=== PATIENT | male | born 1960 | race Two or more races ===

== ENCOUNTER 2023-10-11 18:01 | Inpatient (IN) | payer OTHER ==
[~2023-10-11] VITALS: Ht 167.6 cm; Wt 73.9 kg
[2023-10-11] MEDS ORDERED: CRESTOR20 MG PO (18:17)
[2023-10-11] MEDS ORDERED: LIPITOR20 MG PO (18:17)
[2023-10-11] MEDS ORDERED: PROMETHAZINE HCL 50 MG/ML AMPUL IM ONE (18:30)
[2023-10-11] MEDS ORDERED: TAMSULOSIN HCL 0.4 MG CAP PO ONE (18:30)
[2023-10-11] MEDS ORDERED: 0.9 % SODIUM CHLORIDE 1,000 ML IV ONE (18:30)
[2023-10-11] MEDS ORDERED: HYOSCYAMINE SULFATE 0.125 MG TAB.SUBL SL ONE (18:30)
[2023-10-11] MEDS ORDERED: MEPERIDINE HCL/PF 50 MG/ML VIAL IM ONE (18:30)
[2023-10-11 19:05] LABS: HEMATOCRIT 46.7 % (39.0-48.0); HEMOGLOBIN 15.7 g/dL (13-16.00); MEAN CELL VOLUME 98.2 fL (80.0-100.00); MEAN CORPUSCULAR HEMOGLOBIN 32.9 pg (27.00-32.0); MEAN CORPUSCULAR HGB CONC 33.5 g/dl (32.0-36.0); PLATELET COUNT 253 K/uL (150-450); RED BLOOD COUNT 4.76 M/uL (4.00-6.00); RED CELL DISTRIBUTION WIDTH 13.3 % (11.5-14.5)
[2023-10-11 19:24] LABS: INR 1.01; PARTIAL THROMBOPLASTIN TIME 24.6 SECONDS (22.0-34.0); PROTHROMBIN TIME 10.6 SECONDS (9.0-11.5)
[2023-10-11 19:29] LABS: ALBUMIN 4.2 gm/dL (3.4-5.0); BILIRUBIN TOTAL 0.69 mg/dL (0.3-1.2); CALCIUM 9.7 mg/dL (8.5-10.1); CREATININE SERUM 1.89 mg/dL (0.70-1.30); GFR 36.32; GLOBULINA 3.9 G/DL (2.4-3.5); POTASSIUM 4.55 mEq/L (3.5-5.1); TOTAL PROTEIN 8.1 gm/dL (6.4-8.2)
[2023-10-11] MEDS ORDERED: ONDANSETRON HCL 4 MG in 0.9 % SODIUM CHLORIDE 50 ML IV PRN (21:15)
[2023-10-11] MEDS ORDERED: 0.9 % SODIUM CHLORIDE 1,000 ML IV SCH (21:15)
[2023-10-11] MEDS ORDERED: ACETAMINOPHEN 500 MG GEL..CAP PO PRN (21:15)
[2023-10-11] MEDS ORDERED: CEFTRIAXONE SODIUM 2,000 MG in 0.9 % SODIUM CHLORIDE 100 ML IV SCH (21:16)
[2023-10-11] MEDS ORDERED: KETOROLAC TROMETHAMINE 15 MG VIAL IV SCH (21:17)
[2023-10-11] MEDS ORDERED: ENALAPRILAT DIHYDRATE 1.25 MG/ML VIAL IV PRN (21:30)
[2023-10-12 04:24] LABS: PH,URINE 5.5 (5.0-8.0); URINE APPEARANCE Clear; URINE BILIRRUBIN Negative (NEGATIVE); URINE BLOOD Negative; URINE COLOR Dark Yellow; URINE GLUCOSE Negative (NEGATIVE); URINE LEUKOCYTE Negative; URINE NITRATE Negative; URINE PROTEIN Trace (NEGATIVE); URINE UROBILINOGEN 0.2 E.U./dl
[2023-10-12 04:28] LABS: URINE EPITHELIAL CELLS 3.8 uL (0.0-38.8); URINE RBC 4.4 uL (0.0-20.8)
[2023-10-12 04:30] LABS: URINE WBC 1.6 uL (0.0-23.2)
[2023-10-12 04:39] LABS: CALCIUM 9.2 mg/dL (8.5-10.1); GFR 30.16; POTASSIUM 4.61 mEq/L (3.5-5.1)
[2023-10-12 04:50] LABS: CREATININE SERUM 2.22 mg/dL (0.70-1.30)
[2023-10-12] MEDS ORDERED: FAMOTIDINE/PF 20 MG in 0.9 % SODIUM CHLORIDE 8 ML IV PUSH SCH (09:00)
[2023-10-12] MEDS ORDERED: TAMSULOSIN HCL 0.4 MG CAP PO SCH (09:00)
[2023-10-12] MEDS ORDERED: KETOROLAC TROMETHAMINE 30 MG VIAL IV SCH (13:00)
[2023-10-12 15:14] LABS: CALCIUM 8.4 mg/dL (8.5-10.1); GFR 34.02; POTASSIUM 5.13 mEq/L (3.5-5.1)
== END 2023-10-12 18:43 | disposition home or self-care (01) | DRG 694 ==
LOC: ER 18:03 → MEDI 21:33 → SEC-K 21:33 → MEDJ 10-12 04:25 → MEDI 10-12 04:49
PROVIDERS: General Practice; Urology; ADMIT Internal Medicine; ATTEND Internal Medicine
PROC: BW21ZZZ Computerized Tomography (CT Scan) of Abdomen and Pelvis (ICD-10-PCS; principal; 2023-10-11)
DX: N20.0 Calculus of kidney (principal); Z20.822 Contact with and (suspected) exposure to COVID-19

== ENCOUNTER 2025-02-23 11:40 | Emergency (ER) | payer OTHER ==
[~2025-02-23] VITALS: Ht 167.6 cm; Wt 71.7 kg
[~2025-02-23 11:40] MED LIST: CRESTOR20 MG PO; LIPITOR20 MG PO
[2025-02-23] MEDS ORDERED: 0.9 % SODIUM CHLORIDE 1,000 ML IV SCH (13:00)
[2025-02-23] MEDS ORDERED: MORPHINE SULFATE 4 MG/ML CARTRIDGE IV ONE (13:00)
[2025-02-23 13:27] LABS: BASO % 0.2 % (0.1-1.2); HEMATOCRIT 43.1 % (40.1-51.0); HEMOGLOBIN 15.1 g/dL (13.7-17.5); LYMPH # 1.22 (1.18-3.74); MONO # 0.52 (0.24-0.82); MONO % 4.7 % (4.7-12.5); NEUT # 9.29 (1.56-6.13); NEUT % 83.9 % (34.0-71.1); PLATELET COUNT 262 K/uL (163-369); RED BLOOD COUNT 4.57 M/uL (4.63-6.08); RED CELL DISTRIBUTION WIDTH 12.5 % (11.6-14.4)
[2025-02-23 13:54] LABS: CALCIUM 10.1 mg/dL (8.5-10.1); CREATININE SERUM 1.82 mg/dL (0.70-1.30); GFR 37.69; POTASSIUM 5.42 mEq/L (3.5-5.1)
[2025-02-23 15:14] LABS: URINE APPEARANCE Clear; URINE BILIRRUBIN Negative (NEGATIVE); URINE BLOOD Large; URINE COLOR Yellow; URINE GLUCOSE Negative (NEGATIVE); URINE LEUKOCYTE Negative; URINE NITRATE Negative; URINE PROTEIN 30 (NEGATIVE); URINE UROBILINOGEN 0.2 E.U./dl
[2025-02-23 15:15] LABS: URINE WBC 7.1 uL (0.0-23.2)
[2025-02-23 15:17] LABS: URINE BACTERIA 2.4 uL (0.0-1933); URINE CAST 1.17 uL (0.0-1.40); URINE KETONE 40 (NEGATIVE)
[2025-02-23] MEDS ORDERED: ACETAMINOPHEN WITH CODEINE 1 UDTAB TABLET PO ONE (16:45)
== END 2025-02-23 18:55 | disposition home or self-care (01) ==
LOC: ER 11:40
PROVIDERS: Emergency Medicine
DX: R10.9 Unspecified abdominal pain (principal)
CPT/HCPCS: 36415; 74176; 96365; 96366; 99283; J2270; J7030